=== PATIENT | female | born 2000 | race Caucasian/White ===

== ENCOUNTER 2022-07-17 00:14 | Emergency (ER) | payer BC, OTHER ==
[~2022-07-17] VITALS: Ht 149.9 cm; Wt 59.0 kg
[2022-07-17 00:15] VITALS: BP 117/73
--- NOTE | 2022-07-17 00:15 | NUR ---
TO BED AMBULATORY
--- NOTE | 2022-07-17 00:46 | NUR ---
Dr. Kenny examining patient with DIPTI Zhang.
[2022-07-17] MEDS ORDERED: ACYCLOVIR 200 MG CAP PO ONE (01:20)
[2022-07-17] MEDS ORDERED: cefTRIAXone 1,000 MG in LIDOCAINE MPF 1% 2.1 ML IM ONE (01:20)
--- NOTE | 2022-07-17 01:20 | NUR ---
DIONE Sheffield DURING PELVIC EXAM AT BEDSIDE. SWABS WERE COLLECTED AND SENT TO LAB
[2022-07-17] MEDS ORDERED: ACYC-278 PO (01:21)
[2022-07-17] MEDS ORDERED: CEPH-588 PO (01:21)
[2022-07-17] MEDS ORDERED: DOXY-487 PO (01:21)
--- NOTE | 2022-07-17 01:26 | NUR ---
22YR OLD FEMALE BIB SELF C/O VAG PAIN X2 DAYS. PAIN 8/10. DENIES ABD PAIN FEVER OR V/D. CURRENTLY ON MENSTRUAL CYCLE. PELVIC EXAM DONE WITH DR Sheffield AT BEDSIDE. VISUAL LESION AROUND [facility]. PATIENT WAS EXPLAINED THE POSSIBILTLY OF HERPES. SWABS WERE COLLECTED AND SENT. PT IS A&OX4 NO DISTRESS NOTED. PT IS EMOTIONAL. RESP EVEN AND UNLABORED. BED AT LOWEST POSITION SIDE RAILS UP X1. NNKDA NO MED HX
[2022-07-17] MEDS ORDERED: cefTRIAXone 1,000 MG VIAL ONE (02:10)
[2022-07-17] MEDS ORDERED: LIDOCAINE MPF 1% 5 ML ONE (02:11)
[2022-07-17] MEDS: DOXYCYCLINE 100 MG CAP PO SCH ×2 (02:14→02:22)
[2022-07-17 02:22] VITALS: BP 110/73
--- NOTE | 2022-07-17 02:22 | NUR ---
PATIENT RETURNED TO RECIEVED MEDICATIONS
--- NOTE | 2022-07-17 02:36 | NUR ---
Patient discharged with v/s stable. Written and verbal after care instructions given and explained. Patient alert, oriented and verbalized understanding of instructions. Ambulatory with steady gait. All questions addressed prior to discharge. ID band removed. Patient advised to follow up with PMD. Rx of ACYCLOVIR KEFLEX DOXYCYCLINE given.
--- NOTE | 2022-07-17 02:38 | NUR ---
The patient's care was reviewed and supervised by Stacie Hall RN.
== END 2022-07-17 02:22 | disposition home or self-care (01) ==
LOC: MED 00:14
DX: N89.8 Other specified noninflammatory disorders of vagina (principal); Z79.899 Other long term (current) drug therapy
CPT/HCPCS: 81002; 81025; 96372; 99283; J0696; J2001